=== PATIENT | female | born 1970 | race African-American/Black ===

== ENCOUNTER 2017-02-21 15:48 | Emergency (ER) | payer MEDICAID ==
[2014-05-21 08:05] VITALS: BMI 24.2
[~2017-02-21 15:48] MED LIST: FERROUS SULFAT325 MG PO; HYDROCODONE-APA1 TAB PO; LEVAQUIN750 MG PO; PROTONIX40 MG PO; TENORMIN50 MG PO
[2017-02-21 17:14] LABS: BASOPHILS 0.2 % (0-2); EOSINOPHILS 0.1 % (0-7); HEMATOCRIT 43.5 % (36.0-48.0); HEMOGLOBIN 14.7 g/dL (12-16); IMMATURE GRANULOCYTES 0.4 % (0-5); LYMPHOCYTES 16.6 % (15-50); MCH 27.8 pg (26.0-34.0); MCHC 33.8 g/dL (31.0-37.0); MCV 82.4 fL (80.0-100.0); MEAN PLATELET VOLUME 11.2 fL (7.4-10.4); MONOCYTES 7.4 % (2-11); NEUTROPHILS 75.3 % (40-80); RBC 5.28 10x6/uL (4.00-5.40); RDW 14.3 % (11.5-14.5); WBC 9.7 10x3/uL (4.8-10.8)
[2017-02-21 17:15] LABS: PLATELET COUNT 288 10x3/uL (130-400)
[2017-02-21 17:31] LABS: ALBUMIN 4.1 g/dL (3.4-5.0); ANION GAP 12.3 mmol/L (8-16); BILIRUBIN - TOTAL 0.34 mg/dL (0.2-1.3); CALCIUM 9.8 mg/dL (8.5-10.1); CARBON DIOXIDE 28.8 mmol/L (21.0-32.0); POTASSIUM - SERUM 4.1 mmol/L (3.5-5.1); PROTEIN - SERUM 9.4 g/dL (6.4-8.2)
[2017-02-21 19:27] LABS: APPEARANCE HAZY (CLEAR); BACTERIA MODERATE /hpf (NONE SEEN); BILIRUBIN NEGATIVE (NEGATIVE); COLOR DK YELLOW (YELLOW); GLUCOSE NEGATIVE (NEGATIVE); KETONE MODERATE mg/dL (NEGATIVE); LEUKOCYTE ESTERASE TRACE (NEGATIVE); MUCUS >1+ /lpf (NONE SEEN); NITRITE NEGATIVE (NEGATIVE); PROTEIN 1+ mg/dL (NEGATIVE); RED CELLS - URINE 0-5 /hpf (0-5); UROBILINOGEN NORMAL (NORMAL)
== END 2017-02-21 20:55 | disposition home or self-care (01) ==
LOC: D.ER 15:48
PROVIDERS: Nurse Practitioner Family
DX: K52.9 Noninfective gastroenteritis and colitis, unspecified (principal); R11.10 Vomiting, unspecified

== ENCOUNTER 2018-02-26 11:06 | Emergency (ER) | payer MEDICAID ==
[~2018-02-26] VITALS: Ht 167.6 cm; Wt 96.8 kg
[2018-02-26 11:06] VITALS: Ht 167.6 cm; Wt 96.8 kg
[2018-02-26 11:56] LABS: APPEARANCE CLEAR (CLEAR); BILIRUBIN NEGATIVE (NEGATIVE); COLOR YELLOW (YELLOW); GLUCOSE NEGATIVE (NEGATIVE); KETONE MODERATE mg/dL (NEGATIVE); NITRITE NEGATIVE (NEGATIVE); PROTEIN NEGATIVE (NEGATIVE); SPECIFIC GRAVITY 1.005 (1.005-1.020); UROBILINOGEN NORMAL (NORMAL)
[2018-02-26 11:57] LABS: HCG URINE NEGATIVE (NEGATIVE)
[2018-02-26 12:07] LABS: BASOPHILS 0.2 % (0-2); EOSINOPHILS 0.1 % (0-7); HEMATOCRIT 41.3 % (36.0-48.0); HEMOGLOBIN 13.9 g/dL (12-16); IMMATURE GRANULOCYTES 0.5 % (0-5); LYMPHOCYTES 13.8 % (15-50); MCH 27.6 pg (26.0-34.0); MCHC 33.7 g/dL (31.0-37.0); MCV 81.9 fL (80.0-100.0); MEAN PLATELET VOLUME 11.2 fL (7.4-10.4); MONOCYTES 3.4 % (2-11); RBC 5.04 10x6/uL (4.00-5.40); RDW 15.6 % (11.5-14.5); WBC 9.2 10x3/uL (4.8-10.8)
[2018-02-26 12:09] LABS: ALBUMIN 2.9 g/dL (3.4-5.0); ALKALINE PHOSPHATASE 74 U/L (46-116); ALT (SGPT) 13 U/L (10-68); BILIRUBIN - TOTAL 0.35 mg/dL (0.2-1.3); CALC OSMOLALITY 281 mosm/kg (275-300); CALCIUM 7.8 mg/dL (8.5-10.1); CARBON DIOXIDE 25.3 mmol/L (21.0-32.0); CHLORIDE - SERUM 107 mmol/L (98-107); CREATININE - SERUM 0.8 mg/dL (0.6-1.3); GLUCOSE 117 mg/dL (74-106); POTASSIUM - SERUM 3.1 mmol/L (3.5-5.1); SODIUM 142 mmol/L (136-145); UREA NITROGEN 8 mg/dL (7-18); eGFR NON AFRICAN AMERICAN 81 mL/min (90-120)
[2018-02-26 12:12] LABS: AMYLASE - SERUM 69 U/L (25-115); LIPASE 51 U/L (73-393); PLATELET COUNT 213 10x3/uL (130-400); TROPONIN-I < 0.017 ng/mL (0.000-0.060)
[2018-02-26 12:19] LABS: UDS - AMPHET NEGATIVE QUAL (NEGATIVE); UDS - BARB NEGATIVE QUAL (NEGATIVE); UDS - BENZO NEGATIVE QUAL (NEGATIVE); UDS - COCAINE NEGATIVE QUAL (NEGATIVE); UDS - OPIATE NEGATIVE QUAL (NEGATIVE); UDS - PCP NEGATIVE QUAL (NEGATIVE); UDS - THC POSITIVE QUAL (NEGATIVE)
[2018-02-26] MEDS ORDERED: ZOFRAN ODT4 MG/UDTAB PO (15:01)
[2018-02-26] MEDS ORDERED: PROTONIX40 MG PO (15:01)
[2018-02-26 15:28] VITALS: BP 140/82
== END 2018-02-26 15:20 | disposition home or self-care (01) ==
LOC: D.ER 11:06
PROVIDERS: Family Medicine; Psychiatry & Neurology Psychiatry
DX: K80.20 Calculus of gallbladder without cholecystitis without obstruction (principal); E87.6 Hypokalemia; R19.7 Diarrhea, unspecified; R10.9 Unspecified abdominal pain; I10 Essential (primary) hypertension

== ENCOUNTER 2018-04-01 06:20 | Day surgery (SDC) | payer MEDICAID ==
[~2018-04-01] VITALS: Ht 165.1 cm; Wt 98.2 kg
--- NOTE | ~2018-04-01 | OP ---
PATIENT NAME: LUPE LOCK MEDICAL RECORD: [id number] :66 LOCATION:D.OPS ADMISSION DATE: SURGEON: JONATHAN GOMEZ MD DATE OF OPERATION: 04/01/2018 PREOPERATIVE DIAGNOSES: 1. Gallstones. 2. Hypertension. 3. Hypothyroidism. POSTOPERATIVE DIAGNOSES: 1. Gallstones. 2. Hypertension. 3. Hypothyroidism. PROCEDURE: Laparoscopic cholecystectomy. SURGEON: Jonathan Gomez MD ASSOCIATE PROFESSOR OF MUSIC: Mariela Palma APRN REPORT OF OPERATION: The patient's abdomen was prepped and draped in sterile fashion. A cutdown was made on the superior aspect of the umbilicus, 0 Vicryls were placed in the fascia bilaterally and the fascia was incised with 15-blade. I then bluntly entered the peritoneal cavity and placed a 12-mm Aren port. Under direct visualization, a 5-mm trocar was placed in the epigastrium and 2 more 5-mm trocars were placed in the right subcostal region. The gallbladder was grasped and elevated. There was noted to be some chronic inflammatory changes present. These were taken down with blunt dissection and electrocautery. We eventually dissected out the cystic artery and cystic duct and these structures were clipped proximally and distally and ligated in standard fashion. The gallbladder was taken off the liver bed using electrocautery and placed into the right upper quadrant. Any bleeding from the liver bed was then treated with electrocautery. At this point, the ports and insufflation were then removed and the gallbladder was taken out through the umbilicus. The umbilical fascia was closed with interrupted 0 Vicryls times 3. The wounds were then irrigated out with normal saline, infused with 10 mL of 0.25% Marcaine with epinephrine. The skin incisions were all closed with subcutaneous 5-0 Monocryl and dressed appropriately. COMPLICATIONS: None. CONDITION: Stable. ANESTHESIA: General endotracheal and local. BLOOD LOSS: Minimal. TRANSINT:[id number] Voice Confirmation ID: [id number] DOCUMENT ID: [id number] OPERATIVE REPORT [id number] LUPE LOCK JONATHAN GOMEZ MD at 1409 CC: [id number] DICTATION DATE: 04/01/18 1009 LOCK MASTER: 04/01/18 1203 [facility] 04/01/18 [facility] [address] [place] [address]
[~2018-04-01 06:20] MED LIST changes: +NORCO 10-325 TA1 TAB PO; +SYNTHROID88 MCG PO; +XANAX2 MG PO; +ZOFRAN ODT4 MG/UDTAB PO
[2018-04-01 07:46] LABS: BASOPHILS 0.5 % (0-2); EOSINOPHILS 1.6 % (0-7); HEMATOCRIT 39.5 % (36.0-48.0); LYMPHOCYTES 40.9 % (15-50); MCH 27.1 pg (26.0-34.0); MCHC 32.9 g/dL (31.0-37.0); MCV 82.5 fL (80.0-100.0); MEAN PLATELET VOLUME 10.6 fL (7.4-10.4); MONOCYTES 6.2 % (2-11); NEUTROPHILS 50.8 % (40-80); PLATELET COUNT 221 10x3/uL (130-400); RBC 4.79 10x6/uL (4.00-5.40); RDW 15.6 % (11.5-14.5); WBC 4.4 10x3/uL (4.8-10.8)
[2018-04-01 07:59] LABS: CALC OSMOLALITY 278 mosm/kg (275-300); CALCIUM 8.6 mg/dL (8.5-10.1); CARBON DIOXIDE 28.4 mmol/L (21.0-32.0); CHLORIDE - SERUM 107 mmol/L (98-107); CREATININE - SERUM 0.7 mg/dL (0.6-1.3); GLUCOSE 85 mg/dL (74-106); POTASSIUM - SERUM 4.3 mmol/L (3.5-5.1); SODIUM 141 mmol/L (136-145); UREA NITROGEN 11 mg/dL (7-18); eGFR NON AFRICAN AMERICAN > 90 mL/min (90-120)
[2018-04-01 08:04] VITALS: BP 146/71; Ht 165.1 cm; Wt 98.2 kg
[2018-04-01] MEDS ORDERED: OXYCODONE HCL5 M1 PO (10:05)
== END 2018-04-01 18:05 | disposition home or self-care (01) ==
LOC: D.OPS 06:20
PROVIDERS: Surgery
DX: K80.10 Calculus of gallbladder with chronic cholecystitis without obstruction (principal); Z01.812 Encounter for preprocedural laboratory examination; I10 Essential (primary) hypertension; E03.9 Hypothyroidism, unspecified